=== PATIENT | female | born 1985 | race Caucasian/White ===

== ENCOUNTER 2016-11-04 07:17 | Emergency (ER) | payer OTHER ==
[2016-11-04 08:58] LABS: HEMOGLOBIN 12.7 gm/dl (12.3-15.3); RED BLOOD COUNT 4.02 M/UL (4.00-5.10)
[2016-11-04 09:21] LABS: BUN/CREATININE RATIO 14 (0-10)
== END 2016-11-04 12:20 | disposition home or self-care (01) ==
LOC: ER1 07:17
PROVIDERS: Physician Assistant
DX: N39.0 Urinary tract infection, site not specified (principal); R31.9 Hematuria, unspecified; F17.210 Nicotine dependence, cigarettes, uncomplicated; Z90.49 Acquired absence of other specified parts of digestive tract; Z88.0 Allergy status to penicillin
CPT/HCPCS: 36415; 80053; 81001; 83690; 84703; 85025; 87077; 87086; 87186; 96374; 96375; 99284; J0696; J1885; J2270; J2405; J7030; J7050